=== PATIENT | female | born 2000 | race Hispanic/Latino ===

== ENCOUNTER 2023-01-14 11:36 | Emergency (ER) | payer OTHER ==
[~2023-01-14] VITALS: Ht 157.5 cm; Wt 99.8 kg
[2023-01-14 11:41] VITALS: BP 121/73
== END 2023-01-14 12:49 | disposition home or self-care (01) ==
LOC: EDH 11:36
DX: F41.9 Anxiety disorder, unspecified (principal)
CPT/HCPCS: 99281